=== PATIENT | female | born 1950 | race African-American/Black ===

== ENCOUNTER 2020-04-18 22:54 | Inpatient (IN) ==
[2020-04-18] MEDS ORDERED: MORPHINE 4 MG/1 ML VIAL IV STA (23:19)
[2020-04-18] MEDS ORDERED: NITROGLYCERIN 2% OINT 1 INCH/GM PACK TOP STA (23:19)
[2020-04-18] MEDS ORDERED: ONDANSETRON 4 MG/2 ML VIAL IV STA (23:19)
[2020-04-18] MEDS ORDERED: ASPIRIN 325 MG TABLET PO STA (23:19)
[2020-04-18 23:42] LABS: Basophils % 0.5 % (0.0-0.8); Eosinophils # 0.2 10*3/uL (0.0-0.87); Eosinophils % 2.6 % (0.00-10.9); Hematocrit 19.8 VOL% (35.7-47.0); Immature Granulocytes % 0.5 %; Immature Granulocytes Absolute 0.03 #; Lymphocytes # 1.5 10*3/uL (1.4-4.0); Lymphocytes % 24.4 % (21.3-54.2); Mean Corpuscular HGB Conc 28.8 GM/DL (32-36); Mean Corpuscular Volume 86.8 FL (87-102); Mean Platelet Volume 12.2 FL (9.6-12.0); Monocytes % 8.1 % (1.7-12.7); NRBC # 0.03 10*3/uL; Neutrophils % 63.9 % (38.7-73.9); Platelet Count 274 T/CUMM (130-400); Red Blood Count 2.28 MC/CUMM (3.8-5.5); Red Cell Distribution Width 16.6 % (9.3-17.3); White Blood Count 6.2 T/CUMM (4-12)
[2020-04-18 23:46] LABS: Hemoglobin 5.7 GM/DL (12.0-16.0)
[2020-04-19 00:01] LABS: Alanine Aminotransferase 26 U/L (13-56); Albumin 3.5 G/DL (3.4-5.0); Alkaline Phosphatase 53 U/L (45-117); Aspartate Amino Transferase 19 U/L (0-37); Bilirubin,Total < 0.39 MG/DL (0.2-1.0); Blood Urea Nitrogen 27 MG/DL (7-18); Calcium 10.7 MG/DL (8.5-10.1); Estimated Glom Filtration Rate 55 ML/MIN; Glucose 166 MG/DL (74-106); Osmolality,Calculated 283.7 MOS/KG (273-304); Total Protein 7.1 G/DL (6.4-8.3)
[2020-04-19 00:02] LABS: INR 1.1; PT Patient Result 11.4 SECS (9.8-11.9)
[2020-04-19 00:51] LABS: Hematocrit 20.1 VOL% (35.7-47.0)
[2020-04-19] MEDS ORDERED: SODIUM CHLORIDE 0.9% 1,000 ML IV PRN (02:01)
[2020-04-19] MEDS ORDERED: ACETAMINOPHEN 325 MG TABLET PO PRN (02:49)
[2020-04-19] MEDS ORDERED: ONDANSETRON 4 MG/2 ML VIAL IV PRN (02:49)
[2020-04-19] MEDS: PANTOPRAZOLE 40 MG VIAL IV SCH ×3 (04:11→21:39)
[2020-04-19 04:47] LABS: Free T4 (Free Thyroxine) 1.12 NG/DL (0.76-1.46); Thyroid Stimulating Hormone 1.03 uIU/ml (0.358-3.74)
[2020-04-19] MEDS: carvediloL 25 MG TABLET PO SCH ×2 (09:31→21:39)
[2020-04-19] MEDS ORDERED: INFLUENZA VIRUS VACCINE 0.5 ML SYRINGE IM ONE (18:24)
[2020-04-19] MEDS: ATORVASTATIN 40 MG TABLET PO SCH (21:39)
[2020-04-20 06:11] LABS: Basophils % 0.5 % (0.0-0.8); Eosinophils # 0.1 10*3/uL (0.0-0.87); Eosinophils % 3.8 % (0.00-10.9); Hematocrit 25.5 VOL% (35.7-47.0); Hemoglobin 7.8 GM/DL (12.0-16.0); Immature Granulocytes % 0.3 %; Immature Granulocytes Absolute 0.01 #; Lymphocytes # 1.4 10*3/uL (1.4-4.0); Lymphocytes % 38.7 % (21.3-54.2); Mean Corpuscular HGB Conc 30.6 GM/DL (32-36); Mean Corpuscular Volume 83.1 FL (87-102); Mean Platelet Volume 11.2 FL (9.6-12.0); Monocytes % 9.3 % (1.7-12.7); NRBC # 0.02 10*3/uL; Neutrophils % 47.4 % (38.7-73.9); Platelet Count 224 T/CUMM (130-400); Red Blood Count 3.07 MC/CUMM (3.8-5.5); Red Cell Distribution Width 15.5 % (9.3-17.3); White Blood Count 3.6 T/CUMM (4-12)
[2020-04-20 06:41] LABS: Bilirubin,Total 0.6 MG/DL (0.2-1.0); Calcium 10.3 MG/DL (8.5-10.1); Osmolality,Calculated 289.7 MOS/KG (273-304); Total Protein 6.1 G/DL (6.4-8.3)
[2020-04-20] MEDS ORDERED: hydrALAZINE 20 MG/1 ML VIAL IV PRN (08:09)
[2020-04-20] MEDS ORDERED: propofoL 200 MG/20 ML VIAL IV ONE (09:00)
[2020-04-20] MEDS ORDERED: LIDOCAINE 2% 5 ML VIAL ONE (09:00)
[2020-04-20] MEDS: PANTOPRAZOLE 40 MG VIAL IV SCH ×2 (09:44→22:32)
[2020-04-20] MEDS: carvediloL 25 MG TABLET PO SCH ×2 (09:45→22:32)
[2020-04-20] MEDS ORDERED: BISACODYL 5 MG TABLET PO ONE (12:00)
[2020-04-20] MEDS: LACTATED RINGERS 1,000 ML IV SCH (12:01)
[2020-04-20] MEDS: lisinopriL 20 MG TABLET PO SCH (13:11)
[2020-04-20] MEDS ORDERED: SODIUM CHLORIDE 0.9% 1,000 ML IV PRN (13:49)
[2020-04-20] MEDS ORDERED: POLYETHYLENE GLYCOL POWDER 255 GM BOTTLE PO ONE (18:00)
[2020-04-20] MEDS: ATORVASTATIN 40 MG TABLET PO SCH (22:32)
[2020-04-21 06:29] LABS: Calcium 10.6 MG/DL (8.5-10.1); Osmolality,Calculated 288.7 MOS/KG (273-304)
[2020-04-21 06:35] LABS: Basophils % 0.5 % (0.0-0.8); Eosinophils # 0.1 10*3/uL (0.0-0.87); Eosinophils % 2.9 % (0.00-10.9); Hematocrit 28.4 VOL% (35.7-47.0); Hemoglobin 8.8 GM/DL (12.0-16.0); Immature Granulocytes % 0.2 %; Immature Granulocytes Absolute 0.01 #; Lymphocytes # 1.3 10*3/uL (1.4-4.0); Lymphocytes % 30.7 % (21.3-54.2); Mean Platelet Volume 11.2 FL (9.6-12.0); Monocytes % 10.4 % (1.7-12.7); Neutrophils % 55.3 % (38.7-73.9); Platelet Count 241 T/CUMM (130-400); Red Blood Count 3.38 MC/CUMM (3.8-5.5); Red Cell Distribution Width 15.3 % (9.3-17.3); White Blood Count 4.1 T/CUMM (4-12)
[2020-04-21 06:39] LABS: Hematocrit 28.3 VOL% (35.7-47.0); Hemoglobin 8.8 GM/DL (12.0-16.0)
[2020-04-21] MEDS ORDERED: MAGNESIUM SULF RIDER 4 GM in PREMIX 1 EACH IV ONE (07:01)
[2020-04-21] MEDS ORDERED: POTASSIUM CHLORIDE 20 MEQ TABLET PO ONE (07:01)
[2020-04-21] MEDS: PANTOPRAZOLE 40 MG VIAL IV SCH ×2 (10:13→21:07)
[2020-04-21] MEDS: carvediloL 25 MG TABLET PO SCH ×2 (10:13→21:06)
[2020-04-21] MEDS: lisinopriL 20 MG TABLET PO SCH (10:13)
[2020-04-21] MEDS: LACTATED RINGERS 1,000 ML IV SCH (10:14)
[2020-04-21] MEDS: ATORVASTATIN 40 MG TABLET PO SCH (21:06)
[2020-04-22 06:02] LABS: Basophils % 0.6 % (0.0-0.8); Eosinophils # 0.1 10*3/uL (0.0-0.87); Eosinophils % 3.2 % (0.00-10.9); Hematocrit 28.1 VOL% (35.7-47.0); Hemoglobin 8.6 GM/DL (12.0-16.0); Immature Granulocytes % 0.3 %; Immature Granulocytes Absolute 0.01 #; Lymphocytes # 1.2 10*3/uL (1.4-4.0); Lymphocytes % 37.6 % (21.3-54.2); Mean Corpuscular HGB Conc 30.6 GM/DL (32-36); Mean Corpuscular Volume 83.6 FL (87-102); Mean Platelet Volume 10.8 FL (9.6-12.0); Monocytes % 11.9 % (1.7-12.7); Neutrophils % 46.4 % (38.7-73.9); Platelet Count 222 T/CUMM (130-400); Red Blood Count 3.36 MC/CUMM (3.8-5.5); White Blood Count 3.1 T/CUMM (4-12)
[2020-04-22 06:32] LABS: Calcium 10.3 MG/DL (8.5-10.1); Osmolality,Calculated 286.8 MOS/KG (273-304)
[2020-04-22] MEDS: CHLORTHALIDONE 25 MG TABLET PO SCH (09:46)
[2020-04-22] MEDS: lisinopriL 20 MG TABLET PO SCH (09:46)
[2020-04-22] MEDS: PANTOPRAZOLE 40 MG VIAL IV SCH ×2 (09:47→20:00)
[2020-04-22] MEDS: carvediloL 25 MG TABLET PO SCH ×3 (09:47→19:19)
[2020-04-22] MEDS: LACTATED RINGERS 1,000 ML IV SCH (10:22)
[2020-04-22] MEDS ORDERED: BISACODYL 5 MG TABLET PO ONE (12:00)
[2020-04-22] MEDS ORDERED: POLYETHYLENE GLYCOL POWDER 255 GM BOTTLE PO ONE (18:00)
[2020-04-22] MEDS: ATORVASTATIN 40 MG TABLET PO SCH ×2 (19:19)
[2020-04-23 06:15] LABS: Basophils % 0.7 % (0.0-0.8); Eosinophils # 0.1 10*3/uL (0.0-0.87); Eosinophils % 3.2 % (0.00-10.9); Hematocrit 28.3 VOL% (35.7-47.0); Hemoglobin 8.5 GM/DL (12.0-16.0); Immature Granulocytes % 0.2 %; Immature Granulocytes Absolute 0.01 #; Lymphocytes # 1.4 10*3/uL (1.4-4.0); Lymphocytes % 34.4 % (21.3-54.2); Mean Corpuscular Volume 84.5 FL (87-102); Mean Platelet Volume 10.4 FL (9.6-12.0); Neutrophils % 51.5 % (38.7-73.9); Platelet Count 230 T/CUMM (130-400); Red Blood Count 3.35 MC/CUMM (3.8-5.5); Red Cell Distribution Width 14.8 % (9.3-17.3); White Blood Count 4.1 T/CUMM (4-12)
[2020-04-23 06:36] LABS: Calcium 10.1 MG/DL (8.5-10.1)
[2020-04-23] MEDS ORDERED: propofoL 200 MG/20 ML VIAL IV ONE (09:00)
[2020-04-23] MEDS ORDERED: LIDOCAINE 2% 5 ML VIAL ONE (09:00)
[2020-04-23] MEDS: LACTATED RINGERS 1,000 ML IV SCH (09:30)
[2020-04-23] MEDS: PANTOPRAZOLE 40 MG VIAL IV SCH ×2 (09:31→13:48)
[2020-04-23] MEDS: carvediloL 25 MG TABLET PO SCH ×2 (09:31→13:33)
[2020-04-23] MEDS: CHLORTHALIDONE 25 MG TABLET PO SCH ×2 (09:31→13:34)
[2020-04-23] MEDS: lisinopriL 20 MG TABLET PO SCH ×2 (09:31→13:33)
[2020-04-23] MEDS ORDERED: MAGNESIUM SULF RIDER 2 GM in PREMIX 1 EACH IV ONE (10:59)
[2020-04-23 11:58] VITALS: BP 135/49
== END 2020-04-23 16:17 | disposition home or self-care (01) | DRG 378 ==
LOC: N.ED 22:54 → SUATTDRO 04-19 01:48 → N.EDINP 04-19 01:48 → N.TELEN 04-19 16:08
PROVIDERS: ADMIT Internal Medicine; ATTEND Internal Medicine

== ENCOUNTER 2021-01-22 21:32 | Inpatient (IN) ==
[2021-01-23] MEDS ORDERED: ONDANSETRON 4 MG/2 ML VIAL IV STA (01:17)
[2021-01-23] MEDS ORDERED: PANTOPRAZOLE 40 MG VIAL IV STA (01:17)
[2021-01-23] MEDS ORDERED: SODIUM CHLORIDE 0.9% 500 ML IV STA (01:17)
[2021-01-23 01:58] LABS: Alanine Aminotransferase 17 U/L (13-56); Albumin 3.5 G/DL (3.4-5.0); Alkaline Phosphatase 61 U/L (45-117); Aspartate Amino Transferase 14 U/L (0-37); Basophils % 0.6 % (0.0-0.8); Bilirubin,Total < 0.39 MG/DL (0.20-1.00); Blood Urea Nitrogen 19 MG/DL (7-18); Calcium 10.4 MG/DL (8.5-10.1); Carbon Dioxide 28 MMOL/L (21-32); Eosinophils # 0.1 10*3/uL (0.0-0.87); Eosinophils % 2.3 % (0.00-10.9); Estimated Glom Filtration Rate 60 ML/MIN; Glucose 126 MG/DL (74-106); Hematocrit 19.9 VOL% (35.7-47.0); Immature Granulocytes % 0.4 %; Immature Granulocytes Absolute 0.02 #; Lymphocytes # 1.1 10*3/uL (1.4-4.0); Lymphocytes % 22.2 % (21.3-54.2); Mean Corpuscular HGB Conc 26.1 GM/DL (32-36); Mean Corpuscular Volume 77.1 FL (87-102); Mean Platelet Volume 13.2 FL (9.6-12.0); Monocytes % 7.8 % (1.7-12.7); NRBC # 0.03 10*3/uL; Neutrophils % 66.7 % (38.7-73.9); Osmolality,Calculated 284.3 MOS/KG (273-304); Platelet Count 329 T/CUMM (130-400); Potassium 3.8 MMOL/L (3.5-5.1); Red Blood Count 2.58 MC/CUMM (3.8-5.5); Sodium 141 MMOL/L (136-145); Total Protein 6.6 G/DL (6.4-8.2); White Blood Count 4.7 T/CUMM (4-12)
[2021-01-23 02:00] LABS: Hemoglobin 5.2 GM/DL (12.0-16.0)
[2021-01-23 02:38] LABS: Hypochromasia 3+; Microcytosis 2+; Platelet Estimate Normal
[2021-01-23 02:39] LABS: Elliptocytes 1+; Polychromasia Few; Schistocytes Few; Tear Drop Cells Few
[2021-01-23] MEDS ORDERED: SODIUM CHLORIDE 0.9% 1,000 ML IV PRN ×2 (04:42→14:51)
[2021-01-23] MEDS ORDERED: ACETAMINOPHEN 325 MG TABLET PO PRN (04:46)
[2021-01-23] MEDS ORDERED: ONDANSETRON 4 MG/2 ML VIAL IV PRN (04:46)
[2021-01-23] MEDS ORDERED: DEXTROSE 50% 25 GM/50 ML VIAL IV PRN (04:46)
[2021-01-23] MEDS ORDERED: GLUCAGON 1 MG VIAL IM PRN (04:46)
[2021-01-23] MEDS ORDERED: hydrALAZINE 20 MG/1 ML VIAL IV PRN (04:46)
[2021-01-23 06:00] LABS: INR 1.1; PT Patient Result 11.9 SECS (10.5-12.0)
[2021-01-23] MEDS: carvediloL 25 MG TABLET PO SCH ×2 (08:10→20:15)
[2021-01-23] MEDS: PANTOPRAZOLE 40 MG TABLET PO SCH (08:10)
[2021-01-23] MEDS: CHLORTHALIDONE 25 MG TABLET PO SCH (08:10)
[2021-01-23] MEDS: lisinopriL 20 MG TABLET PO SCH (08:14)
[2021-01-23] MEDS: FERRIC GLUCONATE COMPLEX 125 MG in SODIUM CHLORIDE 0.9% 100 ML IV SCH (14:29)
[2021-01-23 14:37] LABS: Hematocrit 22.7 VOL% (35.7-47.0)
[2021-01-23 14:39] LABS: Hemoglobin 6.4 GM/DL (12.0-16.0)
[2021-01-23] MEDS: ATORVASTATIN 40 MG TABLET PO SCH (20:16)
[2021-01-24 05:43] LABS: Basophils % 0.8 % (0.0-0.8); Eosinophils # 0.2 10*3/uL (0.0-0.87); Eosinophils % 4.4 % (0.00-10.9); Hematocrit 30.4 VOL% (35.7-47.0); Immature Granulocytes % 0.6 %; Immature Granulocytes Absolute 0.03 #; Mean Corpuscular HGB Conc 29.6 GM/DL (32-36); Mean Corpuscular Volume 81.5 FL (87-102); Monocytes % 9.2 % (1.7-12.7); NRBC # 0.03 10*3/uL; Platelet Count 241 T/CUMM (130-400); Red Cell Distribution Width 16.9 % (9.3-17.3)
[2021-01-24 05:54] LABS: Red Blood Count 3.73 MC/CUMM (3.8-5.5)
[2021-01-24 06:14] LABS: Albumin 2.9 G/DL (3.4-5.0); Bilirubin,Total 0.9 MG/DL (0.20-1.00); Calcium 10.1 MG/DL (8.5-10.1); Osmolality,Calculated 289.7 MOS/KG (273-304); Potassium 3.9 MMOL/L (3.5-5.1); Total Protein 5.7 G/DL (6.4-8.2)
[2021-01-24] MEDS: FERRIC GLUCONATE COMPLEX 125 MG in SODIUM CHLORIDE 0.9% 100 ML IV SCH (08:57)
[2021-01-24] MEDS ORDERED: ETOMIDATE 20 MG/10 ML VIAL IV ONE (12:38)
[2021-01-24] MEDS ORDERED: propofoL 200 MG/20 ML VIAL IV ONE (12:38)
[2021-01-24] MEDS ORDERED: LIDOCAINE 2% 5 ML VIAL ONE (12:38)
[2021-01-24] MEDS ORDERED: LACTATED RINGERS 1,000 ML IV SCH (13:00)
[2021-01-24] MEDS: lisinopriL 20 MG TABLET PO SCH (14:09)
[2021-01-24] MEDS: CHLORTHALIDONE 25 MG TABLET PO SCH (14:09)
[2021-01-24] MEDS: PANTOPRAZOLE 40 MG TABLET PO SCH (14:10)
[2021-01-24] MEDS: carvediloL 25 MG TABLET PO SCH ×2 (14:10→20:04)
[2021-01-24] MEDS: ATORVASTATIN 40 MG TABLET PO SCH (20:04)
[2021-01-25 04:29] LABS: Basophils % 0.2 % (0.0-0.8); Eosinophils # 0.2 10*3/uL (0.0-0.87); Eosinophils % 5.8 % (0.00-10.9); Hematocrit 29.6 VOL% (35.7-47.0); Hemoglobin 8.8 GM/DL (12.0-16.0); Immature Granulocytes % 0.2 %; Immature Granulocytes Absolute 0.01 #; Lymphocytes % 24.1 % (21.3-54.2); Mean Corpuscular HGB Conc 29.7 GM/DL (32-36); Mean Platelet Volume 10.9 FL (9.6-12.0); Monocytes % 9.9 % (1.7-12.7); NRBC # 0.03 10*3/uL; Neutrophils % 59.8 % (38.7-73.9); Platelet Count 190 T/CUMM (130-400); Red Blood Count 3.61 MC/CUMM (3.8-5.5); Red Cell Distribution Width 17.8 % (9.3-17.3); White Blood Count 4.2 T/CUMM (4-12)
[2021-01-25 05:01] LABS: Calcium 9.8 MG/DL (8.5-10.1); Osmolality,Calculated 291.6 MOS/KG (273-304); Potassium 3.6 MMOL/L (3.5-5.1)
[2021-01-25] MEDS: lisinopriL 20 MG TABLET PO SCH (08:42)
[2021-01-25] MEDS: CHLORTHALIDONE 25 MG TABLET PO SCH (08:42)
[2021-01-25] MEDS: carvediloL 25 MG TABLET PO SCH (08:43)
[2021-01-25] MEDS: FERRIC GLUCONATE COMPLEX 125 MG in SODIUM CHLORIDE 0.9% 100 ML IV SCH (08:43)
[2021-01-25] MEDS: PANTOPRAZOLE 40 MG TABLET PO SCH (08:43)
[2021-01-25 11:41] VITALS: BP 150/48
== END 2021-01-25 12:30 | disposition home or self-care (01) | DRG 378 ==
LOC: N.ED 21:32 → N.EDINP 01-23 04:10 → N.4E 01-23 05:49
PROVIDERS: ADMIT Internal Medicine; ATTEND Internal Medicine

== ENCOUNTER 2021-08-30 01:26 | Observation (INO) ==
[2021-08-30] MEDS ORDERED: SODIUM CHLORIDE 0.9% 1,000 ML IV STA ×2 (02:07→03:59)
[2021-08-30 02:46] LABS: Bacteria,Urine Few /HPF (Few); Bilirubin,Urine Negative (Negative); Blood, Urine Small mg/dL (Negative); Glucose,Urine (UA) >=500 mg/dL (Negative); Ketones,Urine 5 mg/dL (Negative); Nitrite,Urine Negative (Negative); Protein,Urine 100 MG/DL; RBC,Urine 2 /HPF (0-4); Squamous Epithelial Cell,Urine Occasional /HPF (0-10); Urine Appearance CLEAR (Clear); Urine Color Straw (Yellow); Urine Urobilinogen < 2.0 EU/DL (<2.0)
[2021-08-30 02:49] LABS: ABG Base Excess -1.6 MMOL/L (-2.5-2.5); ABG Oxygen Saturation 93.5 % (95-100); ABG PCO2 41.1 MM HG (35-48); ABG PH 7.368 (7.35-7.45); ABG PO2 74.5 MM HG (80-95); ABG TCO2 20.8 MMOL/L (23-27)
[2021-08-30 02:53] LABS: Albumin 2.9 G/DL (3.4-5.0); Bilirubin,Total 0.6 MG/DL (0.20-1.00); Calcium 12.3 MG/DL (8.5-10.1); Osmolality,Calculated 327.2 MOS/KG (273-304); Potassium 4.5 MMOL/L (3.5-5.1); Total Protein 9.1 G/DL (6.4-8.2)
[2021-08-30] MEDS ORDERED: INSULIN REGULAR 100 UNIT/ML IV STA ×2 (03:00→06:16)
[2021-08-30 03:14] LABS: Basophils % 0.1 % (0.0-0.8); Eosinophils % 0.1 % (0.00-10.9); Hematocrit 41.8 VOL% (35.7-47.0); Hemoglobin 14.2 GM/DL (12.0-16.0); Immature Granulocytes % 0.4 %; Immature Granulocytes Absolute 0.04 #; Lymphocytes # 0.7 10*3/uL (1.4-4.0); Lymphocytes % 6.7 % (21.3-54.2); Mean Corpuscular Volume 82.3 FL (87-102); Mean Platelet Volume 12.4 FL (9.6-12.0); Monocytes % 8.4 % (1.7-12.7); Neutrophils % 84.3 % (38.7-73.9); Platelet Count 311 T/CUMM (130-400); Red Blood Count 5.08 MC/CUMM (3.8-5.5); Red Cell Distribution Width 14.6 % (9.3-17.3); White Blood Count 9.8 T/CUMM (4-12)
[2021-08-30] MEDS ORDERED: DOCUSATE SODIUM 100 MG CAPSULE PO PRN (03:51)
[2021-08-30] MEDS ORDERED: hydrALAZINE 20 MG/1 ML VIAL IV PRN (03:51)
[2021-08-30] MEDS ORDERED: DEXTROSE 10% 250 ML BAG IV PRN ×2 (03:51)
[2021-08-30] MEDS ORDERED: ZALEPLON 5 MG CAPSULE PO PRN (03:51)
[2021-08-30] MEDS ORDERED: ALBUTEROL 2.5 MG/3 ML NEB RESP TX PRN (03:51)
[2021-08-30] MEDS ORDERED: MAGNESIUM SULF RIDER 2 GM/50 ML PREMIX IV PRN (03:51)
[2021-08-30] MEDS ORDERED: ONDANSETRON 4 MG/2 ML VIAL IV PRN (03:51)
[2021-08-30] MEDS ORDERED: GLUCAGON 1 MG VIAL IM PRN (03:51)
[2021-08-30] MEDS ORDERED: MAGNESIUM SULF RIDER 4 GM/100 ML PREMIX IV PRN (03:51)
[2021-08-30] MEDS ORDERED: SODIUM CHLORIDE 0.9% 1,000 ML IV ONE (03:51)
[2021-08-30] MEDS ORDERED: ACETAMINOPHEN 325 MG TABLET PO PRN (03:51)
[2021-08-30] MEDS ORDERED: hydrALAZINE 20 MG/1 ML VIAL IV STA (03:59)
[2021-08-30] MEDS ORDERED: INSULIN REGULAR 100 UNIT/ML SUBCUT STA (04:26)
[2021-08-30 06:03] LABS: Calcium 11.9 MG/DL (8.5-10.1); Osmolality,Calculated 316.7 MOS/KG (273-304); Potassium 4.2 MMOL/L (3.5-5.1)
[2021-08-30 06:08] LABS: Albumin 2.5 G/DL (3.4-5.0); Bilirubin,Total 0.4 MG/DL (0.20-1.00); Calcium 11.3 MG/DL (8.5-10.1); Osmolality,Calculated 322.2 MOS/KG (273-304); Potassium 4.8 MMOL/L (3.5-5.1)
[2021-08-30 06:17] LABS: ABG Base Excess -6.9 MMOL/L (-2.5-2.5); ABG HCO3 18.1 MMOL/L (20-26); ABG Oxygen Saturation 52.7 % (95-100); ABG PCO2 38.5 MM HG (35-48); ABG TCO2 17.8 MMOL/L (23-27)
[2021-08-30 06:19] LABS: ABG PO2 34.7 MM HG (80-95)
[2021-08-30] MEDS: SODIUM CHLORIDE 0.9% 1,000 ML IV SCH ×2 (06:41→09:50)
[2021-08-30 07:12] LABS: ABG Base Excess -0.3 MMOL/L (-2.5-2.5); ABG HCO3 24.1 MMOL/L (20-26); ABG Oxygen Saturation 92.9 % (95-100); ABG PCO2 42.5 MM HG (35-48); ABG PH 7.378 (7.35-7.45); ABG PO2 70.6 MM HG (80-95); ABG TCO2 21.9 MMOL/L (23-27)
[2021-08-30] MEDS ORDERED: SODIUM CHLORIDE 0.9% 1,000 ML IV SCH (09:00)
[2021-08-30 09:17] LABS: Calcium 11.1 MG/DL (8.5-10.1); Potassium 4.4 MMOL/L (3.5-5.1)
[2021-08-30 09:24] LABS: Osmolality,Calculated 315.8 MOS/KG (273-304)
[2021-08-30] MEDS: INSULIN LISPRO 100 UNIT/ML SUBCUT SCH ×4 (10:09→21:31)
[2021-08-30] MEDS: INSULIN GLARGINE 100 UNIT/ML SUBCUT SCH (10:15)
[2021-08-30] MEDS: ENOXAPARIN 30 MG/0.3 ML SYRINGE SUBCUT SCH (10:16)
[2021-08-30 12:30] LABS: ABG Base Excess 1.6 MMOL/L (-2.5-2.5); ABG HCO3 25.7 MMOL/L (20-26); ABG Oxygen Saturation 93.3 % (95-100); ABG PH 7.401 (7.35-7.45); ABG PO2 69.6 MM HG (80-95); ABG TCO2 23.8 MMOL/L (23-27)
[2021-08-30] MEDS: PANTOPRAZOLE 40 MG TABLET PO SCH (15:32)
[2021-08-30 16:59] LABS: Osmolality,Calculated 313.6 MOS/KG (273-304); Potassium 3.7 MMOL/L (3.5-5.1)
[2021-08-30 19:41] LABS: Calcium 11.3 MG/DL (8.5-10.1); Potassium 3.4 MMOL/L (3.5-5.1)
[2021-08-30] MEDS: SODIUM CHLORIDE 0.45% 1,000 ML IV SCH (20:30)
[2021-08-31 01:22] LABS: Calcium 11.6 MG/DL (8.5-10.1); Osmolality,Calculated 295.8 MOS/KG (273-304); Potassium 3.4 MMOL/L (3.5-5.1)
[2021-08-31 01:45] LABS: Calcium 11.6 MG/DL (8.5-10.1); Osmolality,Calculated 297.7 MOS/KG (273-304); Potassium 3.2 MMOL/L (3.5-5.1)
[2021-08-31] MEDS: POTASSIUM CHLORIDE RIDER 10 MEQ/100 ML PREMIX IV PRN ×3 (02:08→04:30)
[2021-08-31] MEDS: SODIUM CHLORIDE 0.45% 1,000 ML IV SCH ×4 (03:24→22:30)
[2021-08-31] MEDS: PANTOPRAZOLE 40 MG TABLET PO SCH (09:24)
[2021-08-31] MEDS: ENOXAPARIN 30 MG/0.3 ML SYRINGE SUBCUT SCH (09:24)
[2021-08-31] MEDS: INSULIN GLARGINE 100 UNIT/ML SUBCUT SCH (09:25)
[2021-08-31] MEDS: INSULIN LISPRO 100 UNIT/ML SUBCUT SCH ×4 (09:25→22:33)
[2021-08-31] MEDS ORDERED: INSULIN GLARGINE 100 UNIT/ML SUBCUT ONE (11:00)
[2021-08-31] MEDS: carvediloL 25 MG TABLET PO SCH (17:14)
[2021-08-31] MEDS: FERROUS SULFATE 325 MG TABLET PO SCH (22:34)
[2021-09-01] MEDS: SODIUM CHLORIDE 0.45% 1,000 ML IV SCH ×2 (06:29→20:22)
[2021-09-01 06:38] LABS: Calcium 10.7 MG/DL (8.5-10.1)
[2021-09-01 06:39] LABS: Osmolality,Calculated 284.1 MOS/KG (273-304); Potassium 2.8 MMOL/L (3.5-5.1)
[2021-09-01 06:46] LABS: Basophils % 0.3 % (0.0-0.8); Eosinophils # 0.1 10*3/uL (0.0-0.87); Hematocrit 34.5 VOL% (35.7-47.0); Immature Granulocytes % 0.8 %; Immature Granulocytes Absolute 0.05 #; Lymphocytes # 0.9 10*3/uL (1.4-4.0); Mean Corpuscular Volume 85.4 FL (87-102); Mean Platelet Volume 11.9 FL (9.6-12.0); Monocytes % 10.1 % (1.7-12.7); Neutrophils % 72.8 % (38.7-73.9); Red Cell Distribution Width 14.4 % (9.3-17.3)
[2021-09-01 06:49] LABS: Hemoglobin 11.4 GM/DL (12.0-16.0); Platelet Count 241 T/CUMM (130-400); Red Blood Count 4.04 MC/CUMM (3.8-5.5); White Blood Count 6.6 T/CUMM (4-12)
[2021-09-01] MEDS ORDERED: MAGNESIUM SULF RIDER 2 GM/50 ML PREMIX IV PRN (07:14)
[2021-09-01] MEDS ORDERED: MAGNESIUM SULF RIDER 4 GM/100 ML PREMIX IV PRN (07:14)
[2021-09-01] MEDS ORDERED: POTASSIUM CHLORIDE 20 MEQ TABLET PO PRN (07:21)
[2021-09-01] MEDS ORDERED: MAGNESIUM SULF RIDER 2 GM/50 ML PREMIX IV ONE (07:22)
[2021-09-01] MEDS ORDERED: POTASSIUM CHLORIDE 20 MEQ TABLET PO ONE ×2 (07:30→12:00)
[2021-09-01] MEDS ORDERED: metFORMIN 500 MG TABLET PO SCH (08:00)
[2021-09-01] MEDS ORDERED: lisinopriL 20 MG TABLET PO SCH (09:00)
[2021-09-01] MEDS ORDERED: INSULIN GLARGINE 100 UNIT/ML SUBCUT SCH (09:00)
[2021-09-01] MEDS: PANTOPRAZOLE 40 MG TABLET PO SCH (09:28)
[2021-09-01] MEDS: carvediloL 25 MG TABLET PO SCH ×2 (09:28→16:13)
[2021-09-01] MEDS: INSULIN LISPRO 100 UNIT/ML SUBCUT SCH ×3 (09:29→16:13)
[2021-09-01] MEDS: ENOXAPARIN 30 MG/0.3 ML SYRINGE SUBCUT SCH (09:29)
[2021-09-01] MEDS: FERROUS SULFATE 325 MG TABLET PO SCH (09:29)
[2021-09-01 11:43] VITALS: BP 145/64
== END 2021-09-01 17:19 | disposition home or self-care (01) ==
LOC: SUATTDRO → N.ED 01:26 → SUATTDRO 03:51 → INTOOBSV 03:51 → N.EDINP 03:51 → N.5E 14:59
PROVIDERS: ADMIT Emergency Medicine; ATTEND Internal Medicine